=== PATIENT | female | born 1995 | race Hispanic/Latino ===

== ENCOUNTER 2017-01-07 08:44 | Emergency (ER) | payer OTHER ==
[2017-01-07] MEDS ORDERED: Sodium Chloride 0.9% 1,000 ML IV STA (09:17)
[2017-01-07 09:19] VITALS: BP 115/76; RESP 18; O2SAT 99
--- NOTE | 2017-01-07 09:39 | ED PDOC ---
HPI: General Adult Time Seen by Provider: 01/07/17 08:48 Chief Complaint (Nursing): Fever Chief Complaint (Provider): Fever History Per: Patient Onset/Duration Of Symptoms: Days (x3 days) Current Symptoms Are (Timing): Still Present Additional Complaint(s): 21 y/o female presents to the emergency department with a complaint of a fever associated with a headache since , 01/05/2017. Reports she returned earlier this week from a trip to [place]. Denies sore throat, cough, neck stiffness, nausea, vomiting, diarrhea, abdominal pain, or pain with urination. Past Medical History Reviewed: Historical Data, Nursing Documentation, Vital Signs Vital Signs: Last Vital Signs Temp 99.6 F 01/07/17 09:34 Pulse 74 01/07/17 11:24 Resp 18 01/07/17 09:16 BP 115/76 01/07/17 09:16 Pulse Ox 99 01/07/17 11:32 - Medical History PMH: No Chronic Diseases - Surgical History Surgical History: No Surg Hx - Family History Family History: States: Unknown Family Hx - Social History Current smoker - smoking cessation education provided: No Alcohol: None Drugs: Denies - Allergies Allergies/Adverse Reactions: Allergies Allergy/AdvReac Type Severity Reaction Status Date / Time No Known Allergies Allergy Verified 01/07/17 09:16 Review of Systems ROS Statement: Except As Marked, All Systems Reviewed And Found Negative Constitutional: Positive for: Fever ENT: Negative for: Throat Pain, Other (Neck stiffness) Gastrointestinal: Negative for: Vomiting, Abdominal Pain, Diarrhea Genitourinary Female: Negative for: Dysuria Neurological: Positive for: Headache Physical Exam - Reviewed Nursing Documentation Reviewed: Yes Vital Signs Reviewed: Yes - Physical Exam Appears: Positive for: Non-toxic, No Acute Distress Head Exam: Positive for: ATRAUMATIC, NORMAL INSPECTION, NORMOCEPHALIC Skin: Positive for: Normal Color, Warm, Dry, Diaphoresis. Negative for: Rash Eye Exam: Positive for: Normal appearance, PERRL ENT: Positive for: Normal ENT Inspection (Clear), Other (Mucous moist membranes) Neck: Positive for: Normal (No meningeal signs ), Supple Cardiovascular/Chest: Positive for: Regular Rate, Rhythm. Negative for: Murmur Respiratory: Positive for: Normal Breath Sounds. Negative for: Accessory Muscle Use, Respiratory Distress Gastrointestinal/Abdominal: Positive for: Normal Exam, Soft. Negative for: Tenderness Extremity: Positive for: Normal ROM (Full). Negative for: Pedal Edema, Calf Tenderness, Swelling Neurologic/Psych: Positive for: Alert, Oriented (x3). Negative for: Motor/ Sensory Deficits, Other (Kernig's sign and brudzinski's sign) - Laboratory Results Result Diagrams: 01/07/17 09:54 08 09:54 - ECG O2 Sat by Pulse Oximetry: 99 (RA) Pulse Ox Interpretation: Normal - Progress Re-evaluation Time: 11:38 Condition: Improved (Feels much better. No headache, fever. Wishes to go home.) Medical Decision Making Medical Decision Making: Time: 09:16 Initial impression: Fever associated with cough Initial plan: --VBG --CMP --Urine DIP & Preg --CBC w/ diff --Chest x-ray --Tylenol 975 mg PO --Sodium Chloride 1L IV 200 mls/hr --Blood Culture --Urine Culture --Infectious Todd --Rapid Strep Group --Reevaluation Time: 09:54 --Strep Test: Negative --Infectious Todd: Negative Time: 10:15 --Chest X-ray FINDINGS: LUNGS: No active pulmonary disease. PLEURA: No significant pleural effusion identified. No pneumothorax apparent. CARDIOVASCULAR: Normal. OSSEOUS STRUCTURES: No significant abnormalities. VISUALIZED UPPER ABDOMEN: Normal. OTHER FINDINGS: None. IMPRESSION: No active disease. Scribe Attestation: Documented by Divine Godinez, acting as a scribe for Sina Britt MD. Provider Scribe Attestation: All medical record entries made by the Scribe were at my direction and personally dictated by me. I have reviewed the chart and agree that the record accurately reflects my personal performance of the history, physical exam, medical decision making, and the department course for this patient. I have also personally directed, reviewed, and agree with the discharge instructions and disposition. Disposition - Clinical Impression Clinical Impression: Viral syndrome - Patient ED Disposition Is Patient to be Admitted: No Counseled Patient/Family Regarding: Studies Performed, Diagnosis, Need For Followup, Rx Given - Disposition Referrals: [facility] [Outside] Disposition: Routine/Home Disposition Time: 11:39 Condition: FAIR Instructions: Viral Syndrome (ED) Forms: [employer] (Slovenian)
[2017-01-07 09:50] VITALS: TEMP 99.6
[2017-01-07 10:00] LABS: BASO % 0.2 % (0.0-2.0); LYMPH # 0.7 K/uL (1.0-4.3); LYMPH % 6.5 % (20.0-40.0); MEAN CELL VOLUME 95.7 fl (81.0-99.0); MEAN CORPUSCULAR HEMOGLOBIN 32.3 pg (27.0-31.0); MEAN CORPUSCULAR HGB CONC 33.7 g/dL (33.0-37.0); MEAN PLATELET VOLUME 9.7 fl (7.2-11.7); MONO # 0.7 K/uL (0.0-0.8); MONO % 6.2 % (0.0-10.0); NEUT % 87.1 % (50.0-75.0); NRBC % 0.1 % (0.0-0.0); PLATELET COUNT 141 K/uL (130-400); RBC 4.35 Mil/uL (3.80-5.20); WHITE BLOOD COUNT 11.4 K/uL (4.8-10.8)
[2017-01-07 10:00] LABS: VENOUS BLOOD GAS PCO2 48 mmHg (40-60); VENOUS BLOOD GAS PO2 24 mm/Hg (30-55); VENOUS BLOOD PH 7.36 (7.32-7.43)
--- NOTE | 2017-01-07 10:17 | RAD ---
HISTORY: Fever COMPARISON: No prior. TECHNIQUE: Chest PA and lateral FINDINGS: LUNGS: No active pulmonary disease. PLEURA: No significant pleural effusion identified. No pneumothorax apparent. CARDIOVASCULAR: Normal. OSSEOUS STRUCTURES: No significant abnormalities. VISUALIZED UPPER ABDOMEN: Normal. OTHER FINDINGS: None. IMPRESSION: No active disease.
[2017-01-07 10:30] LABS: ALB/GLOB RATIO 1.2 (1.0-2.1); ALT/SGPT 38 U/L (9-52); AST/SGOT 26 U/L (14-36); BLOOD UREA NITROGEN 5 mg/dl (7-17); CALCIUM 8.8 mg/dL (8.4-10.2); GFR AFRICAN-AMERICAN > 60; GFR NON-AFRICAN AMERICAN > 60
[2017-01-07 10:36] LABS: BANDS 1 % (0-2); LYMPHOCYTE 10 % (20-50); MONOCYTE 7 % (0-10); NEUTROPHIL 81 % (42-75); PLATELET ESTIMATE NORMAL (NORMAL); REACTIVE LYMPHOCYTES 1 % (0-0); TOTAL CELLS COUNTED 100
[2017-01-07 11:25] VITALS: PULSE 74
== END 2017-01-07 12:37 | disposition home or self-care (01) ==
LOC: H.ER 08:44
DX: B27.90 Infectious mononucleosis, unspecified without complication (principal)